=== PATIENT | female | born 1990 | race Caucasian/White ===

== ENCOUNTER 2021-10-20 14:46 | Observation (INO) ==
[2021-10-20 17:46] LABS: Basophils % 0.3 % (0.0-0.8); Eosinophils # 0.3 10*3/uL (0.0-0.87); Eosinophils % 1.9 % (0.00-10.9); Hemoglobin 13.7 GM/DL (12.0-16.0); Immature Granulocytes % 0.6 %; Immature Granulocytes Absolute 0.08 #; Lymphocytes # 4.3 10*3/uL (1.4-4.0); Lymphocytes % 32.1 % (21.3-54.2); Mean Corpuscular HGB Conc 32.6 GM/DL (32-36); Mean Corpuscular Volume 84.3 FL (87-102); Mean Platelet Volume 10.1 FL (9.6-12.0); Neutrophils % 59.1 % (38.7-73.9); Platelet Count 333 T/CUMM (130-400); Red Blood Count 4.98 MC/CUMM (3.8-5.5); Red Cell Distribution Width 12.9 % (9.3-17.3); White Blood Count 13.2 T/CUMM (4-12)
[2021-10-20 18:13] LABS: Alanine Aminotransferase 34 U/L (13-56); Albumin 3.7 G/DL (3.4-5.0); Alkaline Phosphatase 87 U/L (45-117); Aspartate Amino Transferase 20 U/L (0-37); Bilirubin,Total < 0.39 MG/DL (0.20-1.00); Blood Urea Nitrogen 11 MG/DL (7-18); Calcium 9.3 MG/DL (8.5-10.1); Carbon Dioxide 21 MMOL/L (21-32); Glucose 103 MG/DL (74-106); Osmolality,Calculated 268.1 MOS/KG (273-304); Potassium 3.9 MMOL/L (3.5-5.1); Sodium 135 MMOL/L (136-145); Total Protein 8.2 G/DL (6.4-8.2)
[2021-10-20 18:14] LABS: Estimated Glom Filtration Rate 0 ML/MIN
[2021-10-20] MEDS ORDERED: LACTATED RINGERS 1,000 ML IV ONE (19:11)
[2021-10-20] MEDS ORDERED: ONDANSETRON 4 MG/2 ML VIAL IV PRN (19:14)
[2021-10-20] MEDS: LACTATED RINGERS 1,000 ML IV SCH (21:28)
[2021-10-20] MEDS: PIPERACILLIN/TAZOBACTAM 3,375 MG in SODIUM CHLORIDE 0.9% 100 ML IV SCH (21:28)
[2021-10-20] MEDS: MORPHINE 2 MG/1 ML SYRINGE IV PRN (21:32)
[2021-10-21] MEDS: LACTATED RINGERS 1,000 ML IV SCH ×2 (03:56→11:23)
[2021-10-21] MEDS: PIPERACILLIN/TAZOBACTAM 3,375 MG in SODIUM CHLORIDE 0.9% 100 ML IV SCH ×2 (04:13→13:12)
[2021-10-21 08:24] LABS: Basophils % 0.4 % (0.0-0.8); Eosinophils # 0.2 10*3/uL (0.0-0.87); Eosinophils % 1.4 % (0.00-10.9); Hematocrit 40.9 VOL% (35.7-47.0); Hemoglobin 12.6 GM/DL (12.0-16.0); Immature Granulocytes % 0.6 %; Immature Granulocytes Absolute 0.06 #; Lymphocytes # 2.5 10*3/uL (1.4-4.0); Lymphocytes % 23.9 % (21.3-54.2); Mean Corpuscular HGB Conc 30.8 GM/DL (32-36); Mean Corpuscular Volume 87.6 FL (87-102); Mean Platelet Volume 10.2 FL (9.6-12.0); Neutrophils % 67.7 % (38.7-73.9); Platelet Count 293 T/CUMM (130-400); Red Blood Count 4.67 MC/CUMM (3.8-5.5); White Blood Count 10.5 T/CUMM (4-12)
[2021-10-21] MEDS ORDERED: ENOXAPARIN 40 MG/0.4 ML SYRINGE SUBCUT SCH (09:00)
[2021-10-21] MEDS: MORPHINE 2 MG/1 ML SYRINGE IV PRN (09:38)
[2021-10-21 12:09] VITALS: BP 105/55
== END 2021-10-21 16:11 | disposition home or self-care (01) ==
LOC: INTOOBSV 16:48 → N.3E 16:48
PROVIDERS: ADMIT Surgery; ATTEND Surgery